=== PATIENT | female | born 1935 | race Native Hawaiian/Other Pacific Islander ===

== ENCOUNTER → 2017-02-19 14:58 | Outpatient (CLI) | payer OTHER | END | disposition home or self-care (01) | LOC: AMB 14:58 | DX: Z04.1 Encounter for examination and observation following transport accident (principal) ==

== ENCOUNTER 2019-07-27 14:41 | Outpatient (CLI) | payer OTHER | END 2019-07-27 14:45 | disposition short-term general hospital (02) | LOC: AMB 14:41 | DX: M25.511 Pain in right shoulder (principal); W18.39XA Other fall on same level, initial encounter; Y92.017 Garden or yard in single-family (private) house as the place of occurrence of the external cause | CPT/HCPCS: A0425; A0427 ==

== ENCOUNTER 2019-07-27 14:49 | Emergency (ER) | payer OTHER ==
[~2019-07-27] VITALS: Ht 175.3 cm; Wt 81.6 kg
[2019-07-27 17:30] VITALS: BP 157/72; TEMP 97.9
== END 2019-07-27 17:30 | disposition home or self-care (01) ==
LOC: ED 14:49
DX: S42.291A Other displaced fracture of upper end of right humerus, initial encounter for closed fracture (principal); W18.09XA Striking against other object with subsequent fall, initial encounter; Y93.H2 Activity, gardening and landscaping; Y92.89 Other specified places as the place of occurrence of the external cause
CPT/HCPCS: 96374; 96375; 99284; J2270; J2405

== ENCOUNTER 2022-04-26 07:24 | Emergency (ER) | payer OTHER ==
[~2022-04-26] VITALS: Ht 175.3 cm; Wt 81.6 kg
[2022-04-26 07:47] VITALS: TEMP 99.1
[2022-04-26 08:07] LABS: PLATELET COUNT 234 K/uL (152-353)
[2022-04-26 08:13] LABS: POTASSIUM 3.7 mmol/L (3.6-5.2)
[2022-04-26 08:23] LABS: PARTIAL THROMBOPLASTIN TIME 25.4 SECONDS (24.5-33.6)
[2022-04-26 09:24] VITALS: BP 172/78
== END 2022-04-26 10:45 | disposition short-term general hospital (02) ==
LOC: ED 07:24
PROVIDERS: Emergency Medicine
DX: I63.9 Cerebral infarction, unspecified (principal); G81.91 Hemiplegia, unspecified affecting right dominant side; I10 Essential (primary) hypertension; Z11.52 Encounter for screening for COVID-19
CPT/HCPCS: 80053; 81002; 84484; 85027; 85610; 85730; 87635; 93005; 96374; 99284; J0360; U0003